=== PATIENT | male | born 1965 | race Caucasian/White ===

== ENCOUNTER 2018-04-30 14:36 | Emergency (ER) | payer MEDICARE, MEDICAID ==
[2018-04-30 14:49] VITALS: BP 132/82
--- NOTE | 2018-04-30 15:05 | EDM.PDOC ---
<[place] - Last Filed: 04/30/18 15:04> ED HPI GENERAL MEDICAL PROBLEM - General Chief Complaint: General Stated Complaint: COLD Time Seen by Provider: 04/30/18 14:50 - Related Data Allergies Allergy/AdvReac Type Severity Reaction Status Date / Time meloxicam Allergy Facial Verified 04/30/18 14:45 Swelling Home Meds: Home Meds NK [No Known Home Meds] 11/22/14 [History] Past Medical History HEENT History: Reports: Impaired Vision Respiratory History: Reports: Sleep Apnea Musculoskeletal History: Reports: None Endocrine/Metabolic History: Reports: Obesity/BMI 30+ - Infectious Disease History Infectious Disease History: Reports: Chicken Pox - Past Surgical History Head Surgeries/Procedures: Reports: None HEENT Surgical History: Reports: None Respiratory Surgical History: Reports: None Endocrine Surgical History: Reports: None Musculoskeletal Surgical History: Reports: Other (See Below) Other Musculoskeletal Surgeries/Procedures:: right foot surgery Dermatological Surgical History: Reports: None Social & Family History - Tobacco Use Smoking Status *Q: Never Smoker Second Hand Smoke Exposure: No - Caffeine Use Caffeine Use: Reports: Soda - Recreational Drug Use Recreational Drug Use: No Course - Vital Signs Last Recorded V/S: Last Vital Signs Temp 36.2 C 04/30/18 14:47 Pulse 97 04/30/18 14:47 Resp 18 04/30/18 14:47 BP 132/82 04/30/18 14:47 Pulse Ox 98 04/30/18 14:47 - Orders/Labs/Meds Orders: Active Orders 24 hr Category Date Time Status RT Aerosol Therapy [RC] ASDIRECTED Care 04/30/18 15:19 Active Meds: Medications Discontinued Medications Generic Name Dose Route Start Last Admin Trade Name Vida PRN Reason Stop Dose Admin Albuterol/Ipratropium 3 ml 04/30/18 15:19 04/30/18 15:27 Duoneb 3.0-0.5 Mg/3 Ml NEB 04/30/18 15:20 3 ml ONETIME ONE Administration Ceftriaxone Sodium 1 gm 04/30/18 15:14 Rocephin IM 04/30/18 15:15 ONETIME ONE Ceftriaxone Sodium 1 gm/ 0 gm 04/30/18 15:20 04/30/18 15:30 Lidocaine HCl 2.1 ml IM 10/06/18 15:21 1 inj ONETIME ONE Administration Methylprednisolone Sodium Succinate 125 mg 04/30/18 15:15 04/30/18 15:28 Solu-Medrol IM 04/30/18 15:16 125 mg ONETIME ONE Administration Departure - Discharge Information Referrals: PCP,None [Primary Care Provider] - Forms: ED Department Discharge - My Orders Last 24 Hours: My Active Orders 04/30/18 15:19 RT Aerosol Therapy [RC] ASDIRECTED - Assessment/Plan Last 24 Hours: My Active Orders 04/30/18 15:19 RT Aerosol Therapy [RC] ASDIRECTED <Jimmy[place]ian[place] A - Last Filed: 04/30/18 15:34> ED HPI GENERAL MEDICAL PROBLEM - General Source of Information: Reports: Patient, RN Notes Reviewed History Limitations: Reports: No Limitations - History of Present Illness INITIAL COMMENTS - FREE TEXT/NARRATIVE: Calos presents today with complaints of sinus congestion, cough without mucus production, difficulty sleeping due to postnasal drip, headache for 10 days. He has tried OTC cough medicines and cold remedies without improvement. ED ROS GENERAL - Review of Systems Review Of Systems: See Below Constitutional: Reports: Fever, Chills, Malaise HEENT: Reports: Nose Pain, Rhinitis, Sinus Problem, Other (sinus congestion, headache, sinus pain/pressure, cough without mucus production. ). Denies: Dental Pain, Ear Pain, Eye Discharge, Eye Pain Respiratory: Reports: Wheezing, Cough. Denies: Sputum, Hemoptysis Cardiovascular: Denies: Chest Pain, Blood Pressure Problem, Dyspnea on Exertion , Edema, Lightheadedness, Orthopnea, Palpitations, PND, Syncope Endocrine: Reports: No Symptoms GI/Abdominal: Reports: No Symptoms Musculoskeletal: Reports: No Symptoms Skin: Reports: No Symptoms Neurological: Reports: No Symptoms Psychiatric: Reports: No Symptoms Hematologic/Lymphatic: Reports: No Symptoms Immunologic: Reports: No Symptoms ED EXAM, GENERAL - Physical Exam Exam: See Below Free Text/Narrative:: Calos is an alert and oriented 52 year old male presenting today with complaints of chills, intermittent fever, cough without mucus production, sinus congestion, pain and pressure. He complains of wheezing at times. He states he has a difficult time sleeping due to post nasal drip. He states he has been using fluticasone nasal spray, OTC cough medicine and cold remedies without improvement. Exam Limited By: No Limitations General Appearance: Alert, WD/WN, Mild Distress Eye Exam: Bilateral Eye: EOMI, Normal Inspection, PERRL Ears: Normal External Exam, Normal Canal, Hearing Grossly Normal, Normal TMs Ear Exam: Bilateral Ear: Auricle Normal, Canal Normal, TM normal Nose: Nasal Tenderness, Nasal Swelling, Nasal Drainage, Other (purulent nasal drainage). No: Nasal Flaring Throat/Mouth: Normal Inspection, Normal Lips, Normal Teeth, Normal Gums, Normal Oropharynx, Normal Voice, No Airway Compromise Head: Atraumatic, Normocephalic, Facial Swelling, Facial Tenderness, Sinus Tenderness Neck: Normal Inspection, Supple, Non-Tender, Full Range of Motion. No: Lymphadenopathy (R), Lymphadenopathy (L) Respiratory/Chest: No Respiratory Distress, No Accessory Muscle Use, Chest Non- Tender, Decreased Breath Sounds, Rales, Wheezing. No: Respiratory Distress, Rhonchi, Retractions Cardiovascular: Normal Peripheral Pulses, Regular Rate, Rhythm, No Edema, No Murmur, No Rub Peripheral Pulses: 2+: Radial (L), Radial (R) Back Exam: Normal Inspection, Full Range of Motion. No: CVA Tenderness (R), CVA Tenderness (L) Extremities: Normal Inspection, Normal Range of Motion, Non-Tender, No Pedal Edema, Normal Capillary Refill Neurological: Alert, Oriented, CN II-XII Intact, Normal Cognition, Normal Gait, Normal Reflexes, No Motor/Sensory Deficits Psychiatric: Normal Affect, Normal Mood Skin Exam: Warm, Dry, Intact, Normal Color, No Rash Lymphatic: No Adenopathy Course - Orders/Labs/Meds Orders: Active Orders 24 hr Category Date Time Status RT Aerosol Therapy [RC] ASDIRECTED Care 04/30/18 15:19 Active Meds: Medications Discontinued Medications Generic Name Dose Route Start Last Admin Trade Name Freq PRN Reason Stop Dose Admin Albuterol/Ipratropium 3 ml 04/30/18 15:19 04/30/18 15:27 Duoneb 3.0-0.5 Mg/3 Ml NEB 04/30/18 15:20 3 ml ONETIME ONE Administration Ceftriaxone Sodium 1 gm 04/30/18 15:14 Rocephin IM 04/30/18 15:15 ONETIME ONE Ceftriaxone Sodium 1 gm/ 0 gm 04/30/18 15:20 04/30/18 15:30 Lidocaine HCl 2.1 ml IM 04/30/18 15:21 1 inj ONETIME ONE Administration Methylprednisolone Sodium Succinate 125 mg 04/30/18 15:15 04/30/18 15:28 Solu-Medrol IM 04/30/18 15:16 125 mg ONETIME ONE Administration - My Orders Last 24 Hours: My Active Orders 04/30/18 15:19 RT Aerosol Therapy [RC] ASDIRECTED - Assessment/Plan Last 24 Hours: My Active Orders 04/30/18 15:19 RT Aerosol Therapy [RC] ASDIRECTED
[2018-04-30] MEDS ORDERED: cefTRIAXone 1 GM Vial IM ONE (15:14)
[2018-04-30] MEDS ORDERED: methylPREDNISolone Sodium Succinate 125 MG/2 ML SDV IM ONE (15:15)
[2018-04-30] MEDS ORDERED: Albuterol/Ipratropium 3.0-0.5 MG/3 ML Neb Soln NEB ONE (15:19)
[2018-04-30] MEDS ORDERED: cefTRIAXone 1 GM, Lidocaine 1% 2.1 ML IM ONE ×2 (15:20)
--- NOTE | 2018-04-30 15:48 | EDM.PDOC ---
ED HPI GENERAL MEDICAL PROBLEM - General Chief Complaint: General Stated Complaint: COLD Time Seen by Provider: 04/30/18 14:50 - History of Present Illness INITIAL COMMENTS - FREE TEXT/NARRATIVE: Calos presents today with complaints of sinus pain, congestion, pressure, headache, cough without mucus production, wheezing, fever, chills for the past 10 days. He states he has tried use of fluticasone, OTC cough medicine and remedies without improvement. He denies tobacco use. - Related Data Allergies Allergy/AdvReac Type Severity Reaction Status Date / Time meloxicam Allergy Facial Verified 04/30/18 14:45 Swelling Home Meds: Home Meds NK [No Known Home Meds] 11/22/14 [History] Past Medical History HEENT History: Reports: Impaired Vision Respiratory History: Reports: Sleep Apnea, Other (See Below) Other Respiratory History: Pneumonia Musculoskeletal History: Reports: None Endocrine/Metabolic History: Reports: Obesity/BMI 30+ - Infectious Disease History Infectious Disease History: Reports: Chicken Pox - Past Surgical History Head Surgeries/Procedures: Reports: None HEENT Surgical History: Reports: None Respiratory Surgical History: Reports: None Endocrine Surgical History: Reports: None Musculoskeletal Surgical History: Reports: Other (See Below) Other Musculoskeletal Surgeries/Procedures:: right foot surgery Dermatological Surgical History: Reports: None Social & Family History - Tobacco Use Smoking Status *Q: Never Smoker Second Hand Smoke Exposure: No - Caffeine Use Caffeine Use: Reports: Soda - Recreational Drug Use Recreational Drug Use: No ED ROS ENT - Review of Systems Review Of Systems: See Below Constitutional: Reports: Fever, Chills. Denies: Malaise HEENT: Reports: Nose Pain, Rhinitis, Sinus Problem. Denies: Dental Pain, Ear Discharge, Ear Pain, Eye Discharge, Eye Pain, Throat Pain, Throat Swelling, Vision Change Respiratory: Reports: Wheezing, Cough. Denies: Shortness of Breath, Pleuritic Chest Pain, Sputum, Hemoptysis Cardiovascular: Denies: Chest Pain, Blood Pressure Problem, Dyspnea on Exertion , Edema, Lightheadedness, Orthopnea, Palpitations, PND, Syncope Endocrine: Reports: No Symptoms GI/Abdominal: Reports: No Symptoms Musculoskeletal: Reports: No Symptoms Skin: Reports: No Symptoms Neurological: Reports: Headache. Denies: Confusion, Dizziness, Numbness, Tingling, Trouble Speaking, Difficulty Walking, Weakness, Change in Speech, Gait Disturbance Psychiatric: Reports: No Symptoms Hematologic/Lymphatic: Reports: No Symptoms Immunologic: Reports: No Symptoms ED EXAM, ENT - Physical Exam Exam: See Below Text/Narrative:: Calos is an alert and oriented 52 year old male presenting with complaints of intermittent fever, chills, cough, sinus pain, pressure and congestion with nonproductive cough, facial pain/tenderness and wheezing for 10 days. Use of OTC have not helped his symptoms. Exam Limited By: No Limitations General Appearance: Alert, WD/WN, Mild Distress Eye Exam: Bilateral Eye: EOMI, Normal Inspection, PERRL Ears: Normal External Exam, Normal Canal, Hearing Grossly Normal, TM Dullness Nose: Nasal Discharge, Nasal Swelling, Nasal Tenderness, Injected Turbinates. No: Septal Hematoma Mouth/Throat: Normal Inspection, Normal Gums, Normal Lips, Normal Oropharynx, Normal Teeth, Hoarse Voice. No: Tonsillar Erythema, Tonsillar Exudates Head: Atraumatic, Normocephalic, Facial Swelling, Facial Tenderness, Sinus Tenderness. No: Facial Lacerations Neck: Normal Inspection, Supple, Non-Tender, Full Range of Motion. No: Lymphadenopathy (R), Lymphadenopathy (L) Respiratory/Chest: No Respiratory Distress, Chest Non-Tender, Decreased Breath Sounds, Rales, Wheezing. No: Stridor, Pleural Rub, Accessory Muscle Use, Retractions, Splinting, Prolonged Expiration Cardiovascular: Normal Peripheral Pulses, Regular Rate, Rhythm, No Edema, No Murmur, No Rub Back: Normal Inspection, Full Range of Motion. No: CVA Tenderness (R), CVA Tenderness (L) Extremities: Normal Inspection, Normal Range of Motion, Non-Tender, No Pedal Edema, Normal Capillary Refill Neurological: Alert, Oriented, CN II-XII Intact, Normal Cognition, Normal Gait, Normal Reflexes, No Motor/Sensory Deficits Psychiatric: Normal Affect, Normal Mood Skin: Warm, Dry, Intact, Normal Color, No Rash Lymphatic: No Adenopathy Course - Vital Signs Last Recorded V/S: Last Vital Signs Temp 36.2 C 04/30/18 14:47 Pulse 97 04/30/18 14:47 Resp 18 04/30/18 14:47 BP 132/82 04/30/18 14:47 Pulse Ox 98 04/30/18 14:47 - Orders/Labs/Meds Orders: Active Orders 24 hr Category Date Time Status RT Aerosol Therapy [RC] ASDIRECTED Care 04/30/18 15:19 Active Meds: Medications Discontinued Medications Generic Name Dose Route Start Last Admin Trade Name Vida PRN Reason Stop Dose Admin Albuterol/Ipratropium 3 ml 04/30/18 15:19 04/30/18 15:27 Duoneb 3.0-0.5 Mg/3 Ml NEB 04/30/18 15:20 3 ml ONETIME ONE Administration Ceftriaxone Sodium 1 gm/ 0 gm 04/30/18 15:20 04/30/18 15:30 Lidocaine HCl 2.1 ml IM 04/30/18 15:21 1 inj ONETIME ONE Administration Methylprednisolone Sodium Succinate 125 mg 04/30/18 15:15 04/30/18 15:28 Solu-Medrol IM 04/30/18 15:16 125 mg ONETIME ONE Administration Patient declined lab and x-ray evaluation. Improvement of breath sounds after nebulizer - less wheezing, movement of more air. He will be treated for acute sinusitis, pneumonia. 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 Departure - Departure Time of Disposition: 15:44 Disposition: Home, Self-Care 01 Condition: Good Clinical Impression: Acute sinusitis, Atypical pneumonia, Wheezing - Discharge Information *PRESCRIPTION DRUG MONITORING PROGRAM REVIEWED*: No *COPY OF PRESCRIPTION DRUG MONITORING REPORT IN PATIENT ASIM: No Instructions: Sinusitis, Adult, [id number], Community-Acquired Pneumonia, Adult, [id number] Referrals: PCP,None [Primary Care Provider] - Forms: ED Department Discharge Additional Instructions: You have been evaluated and treated for acute sinusitis and atypical pneumonia. You were given a duoneb breathing treatment with good results. You were also given ceftriaxone 1gram IM and solumedrol 125mg IM in the emergency room. Keep yourself hydrated. Use albuterol inhaler as directed to help with breathing. Take levaquin 500mg by mouth once a day for 10 days. Take prednisone 40mg by mouth daily for 5 days. Use ibuprofen 800mg by mouth as needed for pain. You can take tramadol as directed for pain as needed. Follow up with provider in 5 to 7 days for a recheck. Return for worsening, issues or concerns. - My Orders Last 24 Hours: My Active Orders 04/30/18 15:19 RT Aerosol Therapy [RC] ASDIRECTED - Assessment/Plan Last 24 Hours: My Active Orders 04/30/18 15:19 RT Aerosol Therapy [RC] ASDIRECTED Assessment:: Acute sinusitis Atypical pneumonia Wheezing Plan: Patient evaluated and treated for acute sinusitis and atypical pneumonia. He was given a duoneb breathing treatment with good results. He was also given ceftriaxone 1gram IM and solumedrol 125mg IM in the emergency room. Keep hydrated. Use albuterol inhaler as directed to help with breathing. Take levaquin 500mg by mouth once a day for 10 days. Take prednisone 40mg by mouth daily for 5 days. Use ibuprofen 800mg by mouth as needed for pain. Can take tramadol as directed for pain as needed (NSAID allergy). Follow up with provider in 5 to 7 days for a recheck. Return for worsening, issues or concerns.
== END 2018-04-30 15:58 | disposition home or self-care (01) ==
LOC: JP.ED 14:36
DX: J01.90 Acute sinusitis, unspecified (principal); J18.9 Pneumonia, unspecified organism; Z88.8 Allergy status to other drugs, medicaments and biological substances
CPT/HCPCS: 94640; 96372; 99284; J0696; J2930; J7620-GY

== ENCOUNTER 2025-07-21 15:35 | Emergency (ER) | payer MEDICARE ==
[2025-07-21 16:37] VITALS: BP 123/74; PULSE 102
== END 2025-07-21 17:36 | disposition home or self-care (01) ==
LOC: JP.ED 15:35
DX: J10.1 Influenza due to other identified influenza virus with other respiratory manifestations (principal); Z88.8 Allergy status to other drugs, medicaments and biological substances
CPT/HCPCS: 71045; 87428; 96360; 99283; 99285; J7030